=== PATIENT | female | born 1980 | race Caucasian/White ===

== ENCOUNTER 2018-09-30 21:51 | Emergency (ER) | payer MEDICAID ==
[~2018-09-30] VITALS: Ht 160 cm; Wt 72.1 kg
[2018-09-30 22:00] VITALS: Ht 160 cm; Wt 72.1 kg
[2018-09-30 22:41] LABS: BASOPHIL % 0.2 % (0-2); PLATELET COUNT 228 x10^3mcL (130-400); RED CELL DISTRIBUTION WIDTH 12.7 % (11.5-14.5)
[2018-09-30 22:59] LABS: CALCIUM 8.6 mg/dL (8.5-10.1); CARBON DIOXIDE 29.8 mmol/L (21-32); CHLORIDE SERUM 105 mmol/L (98-107); CREATININE SERUM 0.6 mg/dL (0.6-1.0); GFR1 > 60 mL/min; GLUCOSE SERUM 100 mg/dL (74-106); POTASSIUM SERUM 3.7 mmol/L (3.5-5.1); SODIUM SERUM 142 mmol/L (136-145)
[2018-09-30 23:04] LABS: ALBUMIN 3.4 g/dL (3.4-5.0); ALKALINE PHOSPHATASE 81 U/L (46-116); ALT/SGPT 16 U/L (14-59); AST/SGOT 10 U/L (15-37); BILIRUBIN TOTAL 0.98 mg/dL (0.20-1.00); LIPASE 147 IU/L (73-393); TOTAL PROTEIN, SERUM 7.1 g/dL (6.4-8.2)
[2018-10-01 00:18] VITALS: BP 112/64
== END 2018-10-01 00:18 | disposition home or self-care (01) ==
LOC: ED 21:51
PROVIDERS: Emergency Medicine
DX: N73.9 Female pelvic inflammatory disease, unspecified (principal)
CPT/HCPCS: 36415; 87491; 87591; J0696; J1885

== ENCOUNTER 2019-08-01 11:15 | Emergency (ER) | payer MEDICAID ==
[~2019-08-01] VITALS: Ht 160 cm; Wt 76.7 kg
[2019-08-01 12:19] VITALS: Ht 160 cm; Wt 76.7 kg
[2019-08-01 14:49] VITALS: BP 110/64
== END 2019-08-01 14:15 | disposition home or self-care (01) ==
LOC: ED 11:15
DX: S96.912A Strain of unspecified muscle and tendon at ankle and foot level, left foot, initial encounter (principal); X58.XXXA Exposure to other specified factors, initial encounter; Y93.89 Activity, other specified; Y92.89 Other specified places as the place of occurrence of the external cause; Y99.8 Other external cause status